=== PATIENT | male | born 1950 | race Two or more races ===

== ENCOUNTER 2021-05-11 00:38 | Inpatient (IN) | payer OTHER ==
[~2021-05-11] VITALS: Ht 180.3 cm; Wt 88.5 kg
[2021-05-11] MEDS ORDERED: AVALIDE 300-121 EACH (00:54)
[2021-05-11] MEDS ORDERED: JARDIANCE10 MG (00:55)
[2021-05-11] MEDS ORDERED: FORTAMET500 MG (00:55)
[2021-05-11] MEDS ORDERED: ATORVASTATIN CA20 MG (00:55)
[2021-05-11] MEDS ORDERED: GLIPIZIDE XL10 MG (00:55)
[2021-05-12] MEDS ORDERED: DUREZOL5 ML (16:03)
[2021-05-12] MEDS ORDERED: OFLOXACIN5 ML (16:03)
[2021-05-12] MEDS ORDERED: KETOROLAC TROMET5 ML (16:03)
== END 2021-05-14 11:14 | disposition home or self-care (01) | DRG 310 ==
LOC: ER 00:38 → ICU-2 10:27 → SEC-K 10:27 → MEDI 05-13 10:39
PROVIDERS: ADMIT Internal Medicine; ATTEND Internal Medicine
PROC: B24BZZZ Ultrasonography of Heart with Aorta (ICD-10-PCS; principal; 2021-05-12)
DX: I47.1 Supraventricular tachycardia (principal); I48.19 Other persistent atrial fibrillation; Z20.822 Contact with and (suspected) exposure to COVID-19; I10 Essential (primary) hypertension; E11.9 Type 2 diabetes mellitus without complications; Z79.4 Long term (current) use of insulin; R00.2 Palpitations